=== PATIENT | female | born 1975 | race African-American/Black ===

== ENCOUNTER 2018-02-16 23:42 | Emergency (ER) | payer OTHER ==
[~2018-02-16] VITALS: Ht 170.2 cm; Wt 98.0 kg
[~2018-02-16 23:42] MED LIST: NORCO 5/3251 TABLET PO; PERCOCET 5/31 TABLET PO; TORADOL10 MG PO
[2018-02-17 00:18] LABS: HEMOGLOBIN 12.4 G/DL (11.9-15.5); MCHC 33.5 G/DL (30.0-36.0); MCV 89.4 FL (83-99); RBC DIS.WIDTH-CV 12.1 % (11.8-14.6); RBC DIS.WIDTH-SD 39.4 % (39-53); RED BLOOD COUNT 4.14 M/uL (3.80-5.20); WHITE BLOOD COUNT 5.5 K/uL (4.1-10.2)
[2018-02-17 00:26] LABS: ALBUMIN 4.6 g/dL (3.2-4.8); CHLORIDE 104 mEq/L (99-109); POTASSIUM 3.5 mEq/L (3.7-5.4); SODIUM 139 mEq/L (136-147)
[2018-02-17 00:29] LABS: GLUCOSE 95 mg/dL (70-99); TOTAL PROTEIN 8.2 g/dL (6.4-8.3)
[2018-02-17 00:31] LABS: TOTAL BILIRUBIN 0.7 mg/dL (0.0-1.0)
[2018-02-17 00:32] LABS: ALKALINE PHOSPHATASE 75 IU/L (3-129); CREATININE 0.8 mg/dL (0.6-1.3); GFR ESTIMATE (CALCULATED) > 59 mL/min/
[2018-02-17 00:33] LABS: UREA NITROGEN (BUN) 7 mg/dL (9-23)
[2018-02-17 00:34] LABS: AST (GOT) 15 IU/L (2-34)
[2018-02-17 00:35] LABS: ALT (GPT) 10 IU/L (3-49)
[2018-02-17 01:53] LABS: TROP-I INTERPRETATION NEGATIVE; TROPONIN-I < 0.01 ng/mL (0.0-0.30)
[2018-02-17 02:22] LABS: PLAT.SUFFICIENCY ADEQUATE; PLATELET COUNT 196 K/uL (156-360)
[2018-02-17] MEDS ORDERED: LISINOPRIL5 MG PO (03:05)
[2018-02-17 03:48] VITALS: BP 144/89
== END 2018-02-17 03:49 | disposition home or self-care (01) ==
LOC: EME 23:42
DX: R00.2 Palpitations (principal); I10 Essential (primary) hypertension; Z91.14 Patient's other noncompliance with medication regimen; Z98.84 Bariatric surgery status
CPT/HCPCS: 80053; 84484; 85027; 93005; 99281; 99285